=== PATIENT | female | born 2000 | race Two or more races ===

== ENCOUNTER 2024-10-19 19:55 | Emergency (ER) | payer MEDICAID ==
[~2024-10-19] VITALS: Ht 165.1 cm; Wt 88.5 kg
[2024-10-19 20:58] VITALS: BP 144/73; TEMP 99.1; O2SAT 99
== END 2024-10-19 20:59 | disposition home or self-care (01) ==
LOC: ER 19:57
DX: S83.91XA Sprain of unspecified site of right knee, initial encounter (principal); M25.561 Pain in right knee; X58.XXXA Exposure to other specified factors, initial encounter; Y93.68 Activity, volleyball (beach) (court); Y92.832 Beach as the place of occurrence of the external cause; Y99.8 Other external cause status